=== PATIENT | male | born 1960 | race African-American/Black ===

== ENCOUNTER → 2021-09-24 11:42 | Outpatient (BNVA) | payer MEDICARE, MEDICAID, SELFPAY | PROVIDERS: Visit Provider Internal Medicine Gastroenterology | DX: K21.9 Gastro-esophageal reflux disease without esophagitis (principal); K59.00 Constipation, unspecified | CPT/HCPCS: 99212 ==

== ENCOUNTER 2021-12-12 10:42 | Day surgery (SDC) | payer MEDICARE, MEDICAID, SELFPAY ==
[2021-12-05 10:18] VITALS: BMI 27.9
--- NOTE | 2021-12-07 13:16 | HO.ANESPROP2 ---
Documented by User: Lakia Garcia NP 12/07/21 13:17 HPI - Anesthesia Eval Consult details Narrative: 61yo M for ?Upper Endoscopy [facility] Past Medical History Medical History (Updated 12/05/21 @ 10:13 by Rona Chen RN) Chronic back pain GERD (gastroesophageal reflux disease) AMERICO (obstructive sleep apnea) PTSD (post-traumatic stress disorder) Sciatica Surgical History Surgical History (Updated 12/05/21 @ 10:13 by Rona Chen RN) Hx of colonoscopy Social History Social History Patient Tobacco Use Status: Tobacco use Unknown Advance Directives: No Advance Directives Information Provided: Yes Advance Directives on File: No Meds Allergies Allergy/AdvReac Type Severity Reaction Status Date / Time No Known Allergies Allergy Verified 09/24/21 11:47 Home Medications Medication Instructions Recorded Confirmed Last Taken Type alprazolam 0.5 mg tablet (Xanax) 0.5 mg PO BEDTIME PRN 09/24/21 Unknown History atorvastatin 40 mg tablet 40 mg PO DAILY 09/24/21 Unknown History escitalopram oxalate 20 mg tablet 20 mg PO DAILY 09/24/21 Unknown History (Lexapro) hydrochlorothiazide 12.5 mg tablet 12.5 mg PO DAILY 09/24/21 Unknown History ibuprofen 400 mg tablet 400 mg PO Q8H PRN 09/24/21 Unknown History lisinopril 10 mg tablet 10 mg PO DAILY 09/24/21 Unknown History prazosin 5 mg capsule mg PO 09/24/21 Unknown History sumatriptan succinate 50 mg tablet See Rx Instructions PO .COMPLEX 09/24/21 Unknown History Exam Exam Date and Time: December 07, 2021 1316 Height,Weight and Vital Signs: Height 6 ft 1 in Weight 96.162 kg Assessment and Plan Assessment Anesthesia Assessment: Chart Reviewed Documented by User: Wolf Sood MD 12/12/21 11:02 [facility] Past Medical History Medical History (Updated 12/05/21 @ 10:13 by Rona Chen RN) Chronic back pain GERD (gastroesophageal reflux disease) AMERICO (obstructive sleep apnea) PTSD (post-traumatic stress disorder) Sciatica Family History Family history of problems with anesthesia: No Surgical History Surgical History (Updated 12/05/21 @ 10:13 by Rona Chen RN) Hx of colonoscopy History of Problems with Anesthesia: No Social History Social History Patient Tobacco Use Status: Tobacco use Unknown Advance Directives: No Advance Directives Information Provided: Yes Advance Directives on File: No Meds Allergies Allergy/AdvReac Type Severity Reaction Status Date / Time No Known Allergies Allergy Verified 09/24/21 11:47 Home Medications Medication Instructions Recorded Confirmed Last Taken Type alprazolam 0.5 mg tablet (Xanax) 0.5 mg PO BEDTIME PRN 09/24/21 Unknown History atorvastatin 40 mg tablet 40 mg PO DAILY 09/24/21 Unknown History escitalopram oxalate 20 mg tablet 20 mg PO DAILY 09/24/21 Unknown History (Lexapro) hydrochlorothiazide 12.5 mg tablet 12.5 mg PO DAILY 09/24/21 Unknown History ibuprofen 400 mg tablet 400 mg PO Q8H PRN 09/24/21 Unknown History lisinopril 10 mg tablet 10 mg PO DAILY 09/24/21 Unknown History prazosin 5 mg capsule mg PO 09/24/21 Unknown History sumatriptan succinate 50 mg tablet See Rx Instructions PO .COMPLEX 09/24/21 Unknown History Exam Airway Mallampati Class: III TM Dist: >3cm Neck ROM: Full Loose/Missing/Broken Teeth: No Heart: [id number] Lungs: cta b/l Assessment and Plan Assessment Anesthesia Assessment: Anesthesia Plan Discussed Final Anesthetic Review Family History of Problems with Anesthesia: No History of Problems with Anesthesia: No NPO: Yes ASA Class: III Final Preanesthetic Review: No Changes in Pt Med Stat, Meds/Allgs Chart Reviewed, Consent Obtained/Reviewed and Anes Risks/Benef Reviewed Patient Risk: Intermediate Procedure Risk: Intermediate Assessment/Block/Sedation in SS: Assess/Block/Sedation-SS Anesthetic Plan Anesthetic Plan: MAC: and Agree w/ Assess. and Plan Disposition: Standard PACU
[2021-12-12 10:45] VITALS: BP 157/68; PULSE 64; RESP 17; TEMP 35.9; O2SAT 95
[2021-12-12] MEDS: Lactated Ringers 1,000 ML 100 ML IVCONT (11:04)
--- NOTE | 2021-12-12 11:11 | P.HPSUR_ITS ---
Pre-Procedural Eval Section A Date of Service: 12/12/21 Section B Chief Complaint: reflux disease Relevant Family History (Specify if Yes): No Relevant Social History: None Present Medications: see Short Stay Collaborative assessment Medical History: Significant History (Chronic back pain GERD (gastroesophageal reflux disease) AMERICO (obstructive sleep apnea) PTSD (post-traumatic stress disorder) Sciatica) History of Previous Operations: Relevant previous surgery/procedure and date(s) (colonoscopy) Allergies: Allergies Allergy/AdvReac Type Severity Reaction Status Date / Time No Known Allergies Allergy Verified 09/24/21 11:47 Review of Systems Sugical H&P ROS: Negative: Constitution, Cardiovascular, Respiratory, Neurological, Psychiatric, Hem-Onc, Allergic/Immunologic, Gastrointestinal, Genitourinary, Musculoskeletal, Integumentary, Endocrine and Eye s/Ears/Nose/Throat Exam Surgical H&P Exam: Normal: HEENT, Normal: Heart, Normal: Lungs, Normal: Extremities, Normal: Abdomen, Normal: Skin and Normal: Neurological Plan Diagnosis/Plan: Unchanged I have reviewed the history and physical and performed a pertinent physical examination on my patient. No changes have occurred unless specified.
--- NOTE | 2021-12-12 11:24 | PM.OP ---
Brief Operative Note Date of Service: 12/12/21 Pre-op diagnosis: GERD, reflux related cough Post-op diagnosis: same Procedure: see op note Surgeon: Carol Ann Herrrea MD Anesthesia: MAC Was an Upper And Bottom Lacer Hand used for this Procedure?: No Estimated blood loss (mL): 0 Condition: stable Disposition: PACU
--- NOTE | 2021-12-12 11:25 | W.PM.OPN ---
Operative Note Operative Note Date of Service: 12/12/21 Narrative: Procedure Description: EGD Indication: [] Anesthesia: MAC FLEXIBLE TRANSORAL UPPER GASTROINTESTINAL ENDOSCOPY UPPER ENDOSCOPY Consent: Indications for the procedure and potential complications of bleeding, perforation, reaction to medications and missed diagnosis were discussed with the patient and informed consent was obtained. Instrument: Olympus GIF H 190 J mid size upper endoscope Monitoring: Vital signs and clinical assessment, continuous EKG monitoring, Pulse oximetry, Carbon Dioxide monitoring and blood pressure monitoring were done throughout the procedure. Procedure: The patient was placed in the left lateral decubitis position and pre-procedure medications were administered and a bite block was placed. The endoscope was inserted into the mouth and advanced under direct vision to the third part of duodenum. A careful inspection was made as the upper endoscope was withdrawn including a retroflexed examination of the proximal stomach; Findings and interventions are described below. Findings: Larynx:normal Esophagus: GE junction at 39 cm, diaphragm hiatus at 41 cm, consistent with 2 cm sliding hiatal hernia. Schatzki ring noted, there was some blood on the edges of the ring after scope was passed through it. small erosive streaks noted, consistent with LA grade A erosive esophagitis. Bx taken from GEJ, distal and proximal esophagus in separate jars. There also appeared to be tertiary contractions, probably from reflux disease. Stomach: Patchy gastric erythema. Biopsies were obtained. Grade 2 flap valve on retroflexed examination of the cardia. Duodenum: Mild bulbar duodenitis, normal descending duodenum, bx taken Intervention: Biopsies as noted above Impression/Findings: hiatal hernia schatzki ring gastritis duodenitis erosive esophagitis, LA grade A PLAN: consider changing PPI, check compliance and timing first if H pylori pos treat cut down on nsaid use, but also on SSRI which may be playing a role
[2021-12-12 11:33] VITALS: BP 131/77; PULSE 84; RESP 18; TEMP 36.9; O2SAT 95
[2021-12-12 11:38] VITALS: BP 122/72; PULSE 67; RESP 16; O2SAT 94
[2021-12-12 11:50] VITALS: BP 137/68; PULSE 62; RESP 16; O2SAT 99
[2021-12-12 12:10] VITALS: BP 137/77; PULSE 61; RESP 16; TEMP 36.8; O2SAT 99
== END 2021-12-12 13:24 | disposition home or self-care (01) ==
PROVIDERS: Visit Provider Internal Medicine Gastroenterology
PROC: 0DJ08ZZ Inspection of Upper Intestinal Tract, Via Natural or Artificial Opening Endoscopic (ICD-10-PCS; CPT 43235; principal; 2021-12-12 11:40)
DX: K21.9 Gastro-esophageal reflux disease without esophagitis (principal); K22.2 Esophageal obstruction; K29.80 Duodenitis without bleeding; K20.80 Other esophagitis without bleeding; K29.50 Unspecified chronic gastritis without bleeding; K44.9 Diaphragmatic hernia without obstruction or gangrene; G47.33 Obstructive sleep apnea (adult) (pediatric); Z79.899 Other long term (current) drug therapy; Z79.1 Long term (current) use of non-steroidal anti-inflammatories (NSAID)
CPT/HCPCS: 43239; 88305; 88342

== ENCOUNTER → 2021-12-21 11:46 | Outpatient (BNVA) | payer MEDICARE, MEDICAID, SELFPAY | PROVIDERS: Visit Provider Internal Medicine Gastroenterology | DX: K21.9 Gastro-esophageal reflux disease without esophagitis (principal); K22.2 Esophageal obstruction | CPT/HCPCS: 99212 ==

== ENCOUNTER → 2022-08-23 08:33 | Outpatient (BNVA) | payer MEDICARE, MEDICAID, SELFPAY | PROVIDERS: Visit Provider Internal Medicine Gastroenterology | DX: K21.9 Gastro-esophageal reflux disease without esophagitis (principal); K20.90 Esophagitis, unspecified without bleeding; K22.2 Esophageal obstruction; K29.80 Duodenitis without bleeding | CPT/HCPCS: 99212 ==

== ENCOUNTER → 2022-09-27 09:35 | Outpatient (BNVA) | payer MEDICARE, MEDICAID, SELFPAY | PROVIDERS: Visit Provider Internal Medicine Gastroenterology | DX: K21.00 Gastro-esophageal reflux disease with esophagitis, without bleeding (principal); K22.2 Esophageal obstruction; K29.80 Duodenitis without bleeding; Z79.899 Other long term (current) drug therapy | CPT/HCPCS: 99212 ==

== ENCOUNTER 2024-12-29 09:54 | Outpatient (AMB) | payer MEDICARE, MEDICAID, SELFPAY ==
[2024-12-29 09:58] VITALS: BMI 28.4
--- NOTE | 2024-12-29 09:58 | MHC.OFFVIS ---
Vital Signs 12/29/24 09:58 Height 6 ft 1 in Weight 215 lb BMI 28.4 Handedness Right Intake Visit Reasons: Right shoulder pain and weakness, Low back pain radiating to both legs Intake Note: Kobe is a 64 year old right hand dominant male who presents with complaints of progressively worsening right shoulder pain and weakness as well as chronic low back pain. The patient has been seen by a neurosurgeon in the past. He has had cervical spine fusion surgery several years ago. He reports minimal discomfort in his neck. He states that his low back pain has gotten worse over the last few years in spite of continued non operative treatments. The patient reports weakness when lifting his right hand above shoulder height. He did fall onto his right shoulder several years ago when he fell while caulking windows. He has failed the last 6 weeks of conservative treatment which has included Tylenol, anti-inflammatory medicines, muscle relaxants, a home exercise program and physical therapy exercises. At this point his right shoulder pain and weakness or interfering with his activities of daily living and his ability to sleep well through the night. Allergies No Known Allergies Allergy (Verified 12/29/24 10:04) Medication List - Last Reconciled 12/29/24 by Bigg Degroot MD alprazolam (Xanax) 0.5 mg PO BEDTIME PRN atorvastatin 40 mg PO DAILY ibuprofen 400 mg PO Q8H PRN melatonin mg PO BEDTIME PRN oxycodone 5 mg PO DAILY PRN pantoprazole 40 mg PO DAILY sumatriptan succinate take 1 tab at onset of headache; if no relief may repeat 1 tab after at least 2 hrs; max = 4 tabs/24 hr PO PFSH Medical History Chronic back pain GERD (gastroesophageal reflux disease) AMERICO (obstructive sleep apnea) PTSD (post-traumatic stress disorder) Sciatica Surgical History History of esophagogastroduodenoscopy (EGD) Hx of colonoscopy Social History (Updated 12/29/24 @ 10:02 by DANIELA Torre) Patient Tobacco Use Status: Never used Tobacco Current occupational status: unemployed Current occupation: rt handed Physical Exam Vital Signs: BMI result Body Mass Index 28.4 Const Other: Well-nourished well-developed very friendly male awake alert and oriented x3 in no acute distress Back/Spine/Pelvis Other: Low back examination shows bilateral paraspinal muscle tenderness, pain with range of motion, positive straight leg raise test bilaterally at 70 degrees, 4/5 strength with testing of his bilateral hip flexors and knee extensors Extrem Other: Right shoulder examination shows decreased range of motion when compared to his left shoulder, 4/5 strength with supraspinatus testing, positive impingement signs, tenderness over his acromioclavicular joint, no instability Results Reviewed Results Reviewed: X-rays of the patient's right shoulder which he brings with him from [facility] show severe acromioclavicular joint narrowing, a type 3 acromion, no acute bony abnormalities Assessment & Plan Assessment & Plan (1) Rotator cuff insufficiency of right shoulder: Code(s): M25.311 - Other instability, right shoulder Category: Medical (2) Low back pain radiating to both legs: Code(s): M54.50 - Low back pain, unspecified; M79.604 - Pain in right leg; M79.605 - Pain in left leg (3) Low back pain radiating down leg: Code(s): M54.50 - Low back pain, unspecified; M79.606 - Pain in leg, unspecified Category: Medical Plan Mr. Lee presents with progressively worsening right shoulder pain and weakness due to impingement syndrome and possible rotator cuff tearing. Thus, I will send the patient for an MRI of his right shoulder for further evaluation. I will see him back once the MRI is completed to discuss the findings and treatment options. He also has progressively worsening low back pain which radiates down his legs most likely due to lumbar stenosis versus a disc herniation. I will hold off on getting a back MRI until after his shoulder MRI. He will contact me prior to his MRI should his symptoms worsen in any way. I spent 21 minutes in reviewing the patient's records and imaging studies, seeing the patient and documenting in the medical record. Orders: Orders shoulder RT wo con Today M25.311 - Other instability, right shoulder Coding Level of Care Code New Pt Level 3 (48865) Complex EM visit Add On G2211 Diagnoses Rotator cuff insufficiency of right shoulder M25.311 Low back pain radiating to both legs M54.50; M79.604; M79.605 Low back pain radiating down leg M54.50; M79.606
--- OUTSIDE RECORDS SUMMARY | 2024-12-29 10:55 | XMS_ITS | Clinical Summary ---
Author Organization [facility] Address [address] [place] [address] Care Team Providers Care Collections Professional Name Role Phone Brant More MD Primary Care Provider Allergies No known active allergies Medications lisinopril (PRINIVIL,ZeSTR IL) 5 MG tablet Take 2 tablets (10 mg total) by mouth daily. Active oxyCODONE (ROXICODONE) 10 mg immediate release tablet Take 0.5 tablets (5 mg total) by mouth every 4 (four) hours as needed. Active atorvastatin (LIPITOR) 40 MG tablet Take 1 tablet (40 mg total) by mouth daily. Active docusate sodium (COLACE) 10 mg/mL liquid Take 10 mL (100 mg total) by mouth daily. Active naproxen (NAPROSYN) 500 MG tabletIndicatio ns:Rotator cuff tendinitis, right Take 1 tablet (500 mg total) by mouth 2 (two) times a day with meals. Take with meals or food to reduce stomach upset. 60 tablet 11/18/2024 Active Encounters Date Type Department Care Team Description 11/18/2024 2:30 PM EDT [facility] [address] [address] Markell Castillo, [place] Rotator cuff tendinitis, right (Primary Dx); Biceps tendinitis of right shoulder 11/14/2024 1:10 PM EDT - 11/14/2024 3:20 PM EDT Emergency [facility] Emergency Department [address] [place] [address] Right shoulder pain (Primary Dx) Discharge Disposition: Home or Self Care 11/14/2024 Travel 10/28/2024 Telephone [facility] PHYSICAL MEDICINE & [place] [place] [address] [facility] [address] [place] [address] Brant More MD 10/28/2024 Scanned Document [facility] [place] [address] [facility] [address] [place] [address] Kalani Mercado MA 10/21/2024 12:00 PM EST Office Visit [facility] PHYSICAL MEDICINE & [place] [place] [address] [facility] [address] [place] [address] Brant More MD Bilateral hip pain (Primary Dx); Bilateral hip joint arthritis; Greater trochanteric pain syndrome 10/21/2024 Scanned Document [facility] [place] [address] [facility] [address] [place] [address] Kalani Mercado MA 10/21/2024 Travel 10/18/2024 Telephone [facility] PHYSICAL MEDICINE & [place] [address] [facility] [address] [place] [address] Zoila Seo MA 10/08/2024 Telephone [facility] [address] [place] [address] Kim Weinstein 10/05/2024 Scanned Document [facility] MEDICINE [facility] [place] [address] [address] [place] [address] Rach Blunt MA 10/04/2024 Telephone [facility] PHYSICAL MEDICINE & [place] [place] [address] [facility] [address] [place] [address] Saul Ortiz RN from Last 3 Months Family History Medical History Relation Name Comments Hypertension Brother Hypertension Father Arthritis Mother Coronary artery disease Mother Hypertension Mother Cancer Sister Relation Name Status Comments Brother Alive Father Mother Sister Social History Tobacco Use Types Packs/Day Years Used Date Smoking Tobacco: Never Assessed Passive Smoke Exposure: Never Smokeless Tobacco: Never Tobacco Cessation:Counseling Given: Not Answered Alcohol Use Standard Drinks/Week Comments Not Currently 0 (1 standard drink = 0.6 oz pur e alcohol) [facility] [place] of Occupat ional Health - Occupational Stress Questionnaire Answer Date Recorded Do you feel stress - tense, restless, nervous, or anxious, or unable to sleep at night because your mind is troubled all the time - these days? Not at all 10/21/2024 Physical Activity Answer Date Recorded On average, how many days pe r week do you engage in moderate to strenuous exercise (like a brisk walk)? 0 days 10/21/2024 On average, how many minutes do you exercise per day at this level? 0 min 10/21/2024 Sex and Gender Information Value Date Recorded Sex Assigned at Male 09/03/2024 3:39 PM EST Legal Sex Male 12:05 PM EDT Gender Identity Male 09/03/2024 3:39 PM EST Sexual Orientation Choose not to disclose 2024 3:39 PM EST Last Filed Vital Signs Vital Sign Reading Time Taken Comments Blood Pressure 160/84 11/14/2024 1:03 PM EDT Pulse 77 11/14/2024 1:03 PM EDT Temperature 36.2 ??C (97.2 ??F) 11/14/2024 1:03 PM ED T Respiratory Rate 18 11/14/2024 1:53 PM EDT Oxygen Saturation 99% 11/14/2024 1:03 PM EDT Inhaled Oxygen Concentration - - Weight - - Height - - Body Mass Index - - Plan of Treatment Health Maintenance Due Date Last Done Comments Hepatitis C Virus Screening 1960 DTaP/Tdap/Td Vaccines (1 - Tdap) 1977 Colonoscopy 2003 Pneumococcal Vaccines 50+ (1 of 1 - PCV) 2008 Zoster (Shingles) Vaccine (1 of 2) 2008 COVID-19 Vaccine ( - 2023-2 5 season) 2024 Influenza Vaccine 03/25/2025 RSV Vaccine 60 years and old er and Patients (1 - 1-dose 75+ series) 2033 Hepatitis B Vaccines Aged Out No long er eligible based on patient's age to complete this topic Procedures Procedure Name Priority Date/Time Associated Diagnosis Comments XR SHOULDER 2+ VIEWS-RIGHT STAT 11/14/2024 2:28 PM EDT from Last 3 Months Results * XR Shoulder 2+ views-Right (11/14/2024 2:28 PM EDT) Anatomical Region Laterality Modality Shoulder Right Computed Radiogr aphy 11/14/2024 2:14 PM EDT Impressions 11/14/2024 2:48 PM EDT No acute osseous pathology of the right shoulder. Interpreted by: ??Neel Landrum MD Surety Bond Agent I personally reviewed the images and the resident's preliminary report and AGREE with the report as it is now presented ([email or web address]). Narrative 11/14/2024 2:48 PM EDT EXAMINATION: XR SHOULDER, RIGHT CLINICAL INFORMATION: Right shoulder pain s/p fall COMPARISON: None available. ?? TECHNIQUE: AP external rotation, Grashey, scapular Y, and axillary views of the right shoulder. FINDINGS: No fracture. Glenohumeral and acromioclavicular alignment is anatomic with normal joint space. Mild right acromioclavicular joint osteoarthritis. No abnormal soft tissue calcifications. ??Partially imaged cervical spine fusion hardware. Procedure Note Marty Johnson MD - 11/14/2024 EXAMINATION: XR SHOULDER, RIGHT CLINICAL INFORMATION: Right shoulder pain s/p fall COMPARISON: None available. TECHNIQUE: AP external rotation, Grashey, scapular Y, and axillary views of the right shoulder. FINDINGS: No fracture. Glenohumeral and acromioclavicular alignment is anatomic with normal joint space. Mild right acromioclavicular joint osteoarthritis. No abnormal soft tissue calcifications. Partially imaged cervical spine fusion hardware. IMPRESSION: No acute osseous pathology of the right shoulder. Interpreted by: Neel Landrum MD Surety Bond Agent I personally reviewed the images and the resident's preliminary report and AGREE with the report as it is now presented (RADPAL1). Smith Mayer PA-C [facility] Final Result from Last 3 Months Insurance MEDICARE PART A & B [facility] MEDICARE PART A & B [facility] Care Teams Collections Professional Relationship Specialty Start Date End Date Brant More MD [address] [place] [address] PCP - General Physical Medicine and Rehabilitation 09/03/24
--- OUTSIDE RECORDS SUMMARY | 2024-12-29 10:55 | XMS_ITS | Encounter Summary ---
Author Organization [facility] Address [address] [place] [id number] Care Team Providers Care Production Broaching Machine Operator Name Role Phone Brant More MD Primary Care Provider Encounter Details Date Type Department Care Team (Late st Contact Info) Description 09/22/2024 Telephone [facility] PHYSICAL MEDICINE & REHAB [place] [address] [place] [phone] Brant More MD [address] [place] [address] Social History Tobacco Use Types Packs/Day Years Used Date Smoking Tobacco: Never Assessed Passive Smoke Exposure: Never Smokeless Tobacco: Never Alcohol Use Standard Drinks/Week Comments Not Currently 0 (1 standard drink = 0.6 oz pur e alcohol) [facility] [place] of Occupat ional Health - Occupational Stress Questionnaire Answer Date Recorded Do you feel stress - tense, restless, nervous, or anxious, or unable to sleep at night because your mind is troubled all the time - these days? To some extent 09/22/2024 Physical Activity Answer Date Recorded On average, how many days pe r week do you engage in moderate to strenuous exercise (like a brisk walk)? 0 days 09/22/2024 On average, how many minutes do you exercise per day at this level? 0 min 09/22/2024 Sex and Gender Information Value Date Recorded Sex Assigned at Male 09/03/2024 3:39 PM EST Legal Sex Male 12:05 PM EDT Gender Identity Male 09/03/2024 3:39 PM EST Sexual Orientation Choose not to disclose 2024 3:39 PM EST documented as of this encounter Plan of Treatment Not on file documented as of this encounter Visit Diagnoses Not on filedocumented in this encounter Care Teams Production Broaching Machine Operator Relationship Specialty Start Date End Date Brant More MD [address] [place] [address] PCP - General Physical Medicine and Rehabilitation 09/03/24 documented as of this encounter
--- OUTSIDE RECORDS SUMMARY | 2024-12-29 10:55 | XMS_ITS ---
[facility] Name [facility] History of Medication Use Medication Directions Dispensed Refills Start Date End Date Stat us naproxen (NAPROSYN) 500 MG tablet Take 1 tablet (500 mg total) by mouth 2 (two) times a day with meals. Take with meals or food to reduce stomach upset. 11/18/2024 active atorvastatin (LIPITOR) 40 MG tablet Take 1 tablet (40 mg total) by mouth daily. active docusate sodium (COLACE) 10 mg/mL liquid Take 10 mL (100 mg total) by mouth daily. active lisinopril (PRINIVIL,ZeSTRIL) 5 MG tablet Take 2 tablets (10 mg total) by mouth daily. active oxyCODONE (ROXICODONE) 10 mg immediate release tablet Take 0.5 tablets (5 mg total) by mouth every 4 (four) hours as needed. Max Daily Amount: 30 mg active Problems Problem Status Onset Date Problem Type Date of Resoluti on Source Rotator cuff tendinitis, right active EncounterDiagnosisAct H [facility] Biceps tendinitis of right shoulder active EncounterDiagnosisAct H [facility] Encounters Encounter Type Encounter Reason Primary Diagnosis Location Date Ambulatory [email or web address] 11/18/2024 Emergency Pain in right shoulder Pain in right shoulder [email or web address] 11/14/2024 Ambulatory Pain in right hip Pain in right hip [facility] 10/21/2024 Ambulatory Low back pain, unspecified Low back pain, unspecified [facility] 09/22/2024 Care Team Organization Name Specialty Phone Email Start Date End Da te [facility] 11/15/2024 [facility] 11/03/2024 12/18/2024 [facility] 09/04/2024
--- OUTSIDE RECORDS SUMMARY | 2024-12-29 10:55 | XMS_ITS | Encounter Summary ---
Author Organization [facility] Address [address] [place] [phone] Care Team Providers Care Optical Instrument Inspector Name Role Phone Brant More MD Primary Care Provider Encounter Details Date Type Department Care Team (Late st Contact Info) Description 10/05/2024 Scanned Document [facility] PHYSICAL MEDICINE & RE[facility]AB [place] [facility] [address] [place] [address] Rach Blunt MA [address] [place], [place] [phone] Social History Tobacco Use Types Packs/Day Years Used Date Smoking Tobacco: Never Assessed Passive Smoke Exposure: Never Smokeless Tobacco: Never Alcohol Use Standard Drinks/Week Comments Not Currently 0 (1 standard drink = 0.6 oz pur e alcohol) [facility] [place] of Occupat ional Health - Occupational Stress [...] on filedocumented in this encounter Care Teams Optical Instrument Inspector Relationship Specialty Start Date End Date Brant More MD [address] [place] [address] PCP - General Physical Medicine and Rehabilitation 09/03/24 documented as of this encounter
--- OUTSIDE RECORDS SUMMARY | 2024-12-29 10:55 | XMS_ITS | Clinical Summary ---
Author Organization [facility] Address [address] [place] [address] Care Team Providers Care Ship Boat Or Barge Mate Name Role Phone Unavailable Primary Care Provider Unavailabl e Allergies No known active allergies Medications Medication Sig Dispensed Refills Start Date End Date Status naproxen (NAPROSYN) 500 MG tablet Take 500 mg by mouth 2 (two) times a day with meals. 0 Active lidocaine (XYLOCAINE) 5 % ointment APPLY 1 GRAM TOPICALLY TID PRN 0 03/25/2020 Active amitriptyline (ELAVIL) tablet 25 mg TK 1 T PO QHS 0 03/25/2020 Active Active Problems No known active problems Social History Tobacco Use Types Packs/Day Years Used Date Smoking Tobacco: Never Smokeless Tobacco: Never Alcohol Use Standard Drinks/Week Comments No 0 (1 standard drink = 0.6 oz pur e alcohol) Sex and Gender Information Value Date Recorded Sex Assigned at Not on file Gender Identity Not on file Sexual Orientation Not on file Job Start Date Occupation Industry Not on file Not on file Not on file Last Filed Vital Signs Vital Sign Reading Time Taken Comments Blood Pressure 130/78 10/04/2019 1:33 PM EST Pulse 91 04/12/2020 10:39 AM EDT Temperature - - Respiratory Rate - - Oxygen Saturation 98% 04/12/2020 10:39 AM EDT Inhaled Oxygen Concentration - - Weight 96.6 kg (213 lb) 04/12/2020 10:39 AM EDT Height 182.9 cm (6') 04/12/2020 10:39 AM EDT Body Mass Index 28.89 04/12/2020 10:39 AM EDT Plan of Treatment Health Maintenance Due Date Last Done Comments Hepatitis C Screening 1960 COVID-19 Vaccine (#1) 1958 Depression Screening 1970 Preventative Health Evaluation 1976 DTap / Tdap / Td (1 - Tdap) 1977 Colon Cancer Screening (Colonoscopy) 2003 Shingrix-Zoster Vaccine (1 o f 2) 2008 BMI Counseling 10/04/2020 10/04/2019, 09/03/2019 Fall Risk Assessment 2023 Pneumococcal Vaccine (1 of 1 - PCV) 2023 Influenza Vaccine (#1) 2024 RSV Adult > 60+ Yrs or (1 - 1-dose 75+ series) 2033 Hepatitis B Vaccines Aged Out No long er eligible based on patient's age to complete this topic RSV Ped < 20 months Aged Out No longe r eligible based on patient's age to complete this topic Kobe Lee Personal/Family Self 1960 [address] [place] [address] Kobe Lee Personal/Family Self 1960 [address] [place] [address]
--- OUTSIDE RECORDS SUMMARY | 2024-12-29 10:56 | XMS_ITS | Encounter Summary ---
Author Organization [facility] Address [address] [place] [address] Care Team Providers Care Director Underwriter Sales Name Role Phone Brant More MD Primary Care Provider Encounter Details Date Type Department Care Team (Late st Contact Info) Description 10/28/2024 Scanned Document [facility] PHYSICAL MEDICINE & REHAB [place] [address] [place] [phone] Kalani Mercado MA [address] [place] [address] Social History Tobacco Use Types Packs/Day Years Used Date Smoking Tobacco: Never Assessed Passive Smoke Exposure: Never Smokeless Tobacco: Never Alcohol Use Standard Drinks/Week Comments Not Currently 0 (1 standard drink = 0.6 oz pur e alcohol) [facility] [place] of Occupat ional Health - Occupational Stress [...] on filedocumented in this encounter Care Teams Director Underwriter Sales Relationship Specialty Start Date End Date Brant More MD [address] [place] [address] PCP - General Physical Medicine and Rehabilitation 09/03/24 documented as of this encounter
--- OUTSIDE RECORDS SUMMARY | 2024-12-29 10:56 | XMS_ITS | Clinical Summary ---
Author Organization [facility] Address [address] [place] [address] Care Team Providers Care Tennis Racket Repairer Name Role Phone Pcp, No MD Primary Care Provider Unavailabl e Allergies No known active allergies Medications diclofenac sodium (VOLTAREN) 1 % gel APPLY 2 GRAMS TOPICALLY FOUR TIMES A DAY FOR OSTEOARTHRITIS - USE DOSING CARD PROVIDED IN BOX 0 Active lidocaine (LIDODERM) 5 % patch APPLY 1 PATCH TOPICALLY ONCE DAILY (LEAVE PATCH ON FOR 12 HOURS, THEN REMOVE PATCH) 0 Active lisinopriL (PRINIVIL) 5 mg tablet lisinopril 5 mg tablet Active amitriptyline (ELAVIL) 25 mg tablet TK 1 T PO QHS 0 Active diazePAM (VALIUM) 5 mg tablet diazepam 5 mg tablet Active naproxen (NAPROSYN) 500 mg tablet Take 500 mg by mouth. 0 Active pravastatin (PRAVACHOL) 20 mg tablet pravastatin 20 mg tablet Active rizatriptan (MAXALT) 10 mg tablet rizatriptan 10 mg tablet Active Active Problems Problem Noted Date Diagnosed Date Essential hypertension 05/09/2020 Hypercholesterolemia 05/09/2020 Low back pain 05/09/2020 Migraine without aura 05/09/2020 Right knee pain 02/16/2020 Family History Relation Status Comments Father Mother Social History Tobacco Use Types Packs/Day Years Used Date Smoking Tobacco: Never Smokeless Tobacco: Never Alcohol Use Standard Drinks/Week Comments Never 0 (1 standard drink = 0.6 oz pur e alcohol) [facility] Answer Date Recorded Q1: How often do you have a drink containing alc ohol? Never 05/09/2020 Average Number of Drinks Not on file 020 Frequency of Binge Drinking Not on file 04/25 Sex and Gender Information Value Date Recorded Sex Assigned at Not on file Legal Sex Male 10:34 AM EST Gender Identity Not on file Sexual Orientation Not on file Last Filed Vital Signs Vital Sign Reading Time Taken Comments Blood Pressure - - Pulse - - Temperature - - Respiratory Rate - - Oxygen Saturation - - Inhaled Oxygen Concentration - - Weight 97.1 kg (214 lb) 05/09/2020 3:33 PM EDT Height 185.4 cm (6' 1 ) 05/09/2020 3:33 PM EDT Body Mass Index 28.23 05/09/2020 3:33 PM EDT Plan of Treatment Health Maintenance Due Date Last Done Comments CT Colonography 1960 Colonoscopy 1958 Colorectal Cancer Screening 1958 FIT-DNA (Cologuard) 1958 FIT 1960 FOBT 1960 Flex Sigmoidoscopy - 5y 1958 HIV Screening 1958 DTaP,Tdap,and Td Vaccines (1 - Tdap) 1976 Pneumococcal Vaccine, 50+ Ye ars (1 of 1 - PCV) 2008 Zoster Vaccines (1 of 2) 2008 COVID-19 Vaccine ( - 2023-2 5 season) 2024 Influenza Vaccine (Season Ended) 2025 HPV Vaccines Aged Out No longer eligi ble based on patient's age to complete this topic Hepatitis A Vaccines Aged Out No long er eligible based on patient's age to complete this topic MMR Vaccines Aged Out No longer eligi ble based on patient's age to complete this topic Meningococcal Vaccine Aged Out No veto effie eligible based on patient's age to complete this topic Insurance [address] [place] [id number] MEDICARE PART A & B Care Teams Tennis Racket Repairer Relationship Specialty Start Date End Date Belkis Schmitz MD [address] [place] [address] PCP - General Internal Medicine 05/02/20
--- OUTSIDE RECORDS SUMMARY | 2024-12-29 10:56 | XMS_ITS | Encounter Summary ---
Author Organization [facility] Address [address] [place] [id number] Care Team Providers Care Piece Work Inspector Name Role Phone Brant More MD Primary Care Provider Encounter Details Date Type Department Care Team (Late st Contact Info) Description 10/21/2024 Scanned Document [facility] PHYSICAL MEDICINE & REHAB [place] [address] [place] [phone] Kalani Mercado MA [address] [place] [address] Social History Tobacco Use Types Packs/Day Years Used Date Smoking Tobacco: Never Assessed Passive Smoke Exposure: Never Smokeless Tobacco: Never Alcohol Use Standard Drinks/Week Comments Not Currently 0 (1 standard drink = 0.6 oz pur e alcohol) [facility] [place] of Occupat ional Health - Occupational Stress [...] on filedocumented in this encounter Care Teams Piece Work Inspector Relationship Specialty Start Date End Date Brant More MD [address] [place] [address] PCP - General Physical Medicine and Rehabilitation 09/03/24 documented as of this encounter
== END 2024-12-29 10:21 | disposition home or self-care (01) ==
LOC: HO.HOS 09:55
PROVIDERS: Visit Provider Orthopaedic Surgery
DX: M25.311 Other instability, right shoulder (principal); M54.50 Low back pain, unspecified; M79.604 Pain in right leg; M79.605 Pain in left leg; M79.606 Pain in leg, unspecified
CPT/HCPCS: 99203; G2211

== ENCOUNTER 2024-12-29 15:14 | Outpatient (REF) | payer MEDICARE, MEDICAID, SELFPAY ==
--- OUTSIDE RECORDS SUMMARY | 2024-12-30 15:47 | XMS_ITS | Encounter Summary ---
Author Organization [facility] Address [address] [place] [phone] Care Team Providers Care Photovoltaic Panel Installer Name Role Phone Brant More MD Primary Care Provider Encounter Details Date Type Department Care Team (Late st Contact Info) Description 10/28/2024 Scanned Document [facility] PHYSICAL MEDICINE & REHAB [place] [address] [place] [phone] Kalani Mercado MA [address] [place] [address] Social History Tobacco Use Types Packs/Day Years Used Date Smoking Tobacco: Never Assessed Passive Smoke Exposure: Never Smokeless Tobacco: Never Alcohol Use Standard Drinks/Week Comments Not Currently 0 (1 standard drink = 0.6 oz pur e alcohol) [facility] [place] of Occupat ional Health - Occupational Stress [...] on filedocumented in this encounter Care Teams Photovoltaic Panel Installer Relationship Specialty Start Date End Date Brant More MD [address] [place] [address] PCP - General Physical Medicine and Rehabilitation 09/03/24 documented as of this encounter
--- OUTSIDE RECORDS SUMMARY | 2024-12-30 15:47 | XMS_ITS | Encounter Summary ---
Author Organization [facility] Address [address] [place] [phone] Care Team Providers Care Building Illuminating Engineer Name Role Phone Brant More MD Primary Care Provider Encounter Details Date Type Department Care Team (Late st Contact Info) Description 09/22/2024 Telephone [facility] PHYSICAL MEDICINE & REHAB [place] [address] [place] [phone] Brant More MD [address] [place] [address] Social History Tobacco Use Types Packs/Day Years Used Date Smoking Tobacco: Never Assessed Passive Smoke Exposure: Never Smokeless Tobacco: Never Alcohol Use Standard Drinks/Week Comments Not Currently 0 (1 standard drink = 0.6 oz pur e alcohol) [facility] [place] of Occupat ional Health - Occupational Stress [...] on filedocumented in this encounter Care Teams Building Illuminating Engineer Relationship Specialty Start Date End Date Brant More MD [address] [place] [address] PCP - General Physical Medicine and Rehabilitation 09/03/24 documented as of this encounter
--- OUTSIDE RECORDS SUMMARY | 2024-12-30 15:47 | XMS_ITS | Clinical Summary ---
Author Organization [facility] Address [address] [place] [address] Care Team Providers Care Spraying Machine Operator Name Role Phone Unavailable Primary Care Provider Unavailabl e Surgical History Surgery Date Site/Laterality Comments CERVICAL SPINE SURGERY PROCEDURE:CERVICAL SPINE SURGERY LUMBAR SPINE SURGERY PROCEDURE:LUMBAR SPINE SURGERY Medical History Medical History Date Comments Migraine DX:Migraine Hypertension DX:Hypertension Social History Tobacco Use Types Packs/Day Years Used Date Smoking Tobacco: Never Smokeless Tobacco: Never Alcohol Use Standard Drinks/Week Comments No 0 (1 standard drink = 0.6 oz pur e alcohol) Sex and Gender Information Value Date Recorded Sex Assigned at Not on file Legal Sex Male 8:21 PM EST Gender Identity Not on file Sexual Orientation Not on file Obstetrics History Plan of Treatment Health Maintenance Due Date Last Done Comments DTaP,Tdap,and Td Vaccines (1 - Tdap) 1977 Pneumococcal Vaccine: 50+ Ye ars (1 of 1 - PCV) 2008 Zoster Vaccines (1 of 2) 2008 Abdominal Aortic Aneurysm (A AA) Screen 07/27/2022 Cholesterol Screening (Lipid Panel) 07/27/2022 Colorectal Cancer Screening: Colonoscopy 07/27/2022 Depression Screening 07/27/2022 Hepatitis C Screening 07/27/2022 Social Influencers of Health Screening 07/27/2022 Falls Risk Assessment 2023 COVID-19 Vaccine ( - 2023-2 5 season) 2024 Influenza Vaccine (Season Ended) 2025 RSV Immunization Adult Patie nts (1 - 1-dose 75+ series) 2033 HIB Vaccines Aged Out No longer eligi ble based on patient's age to complete this topic HPV Vaccines Aged Out No longer eligi ble based on patient's age to complete this topic Hepatitis A Vaccines Aged Out No long er eligible based on patient's age to complete this topic Hepatitis B Vaccines Aged Out No long er eligible based on patient's age to complete this topic IPV Vaccines Aged Out No longer eligi ble based on patient's age to complete this topic MMR Vaccines Aged Out No longer eligi ble based on patient's age to complete this topic Meningococcal ACWY Vaccine Aged Out N o longer eligible based on patient's age to complete this topic Meningococcal B Vaccine Aged Out No l onger eligible based on patient's age to complete this topic RSV Immunization Patients Un afsaneh 20 months Aged Out No longer eligible b ased on patient's age to complete this topic Varicella Vaccines Aged Out No longer eligible based on patient's age to complete this topic
--- OUTSIDE RECORDS SUMMARY | 2024-12-30 15:47 | XMS_ITS | Clinical Summary ---
Author Organization [facility] Address [address] [place] [address] Care Team Providers Care Counter Maker Name Role Phone Brant More MD Primary [...] 11/18/2024 2:30 PM EDT [facility] [address] [address] Markell Castillo, PA Rotator cuff tendinitis, right (Primary Dx); Biceps tendinitis of right shoulder 11/14/2024 1:10 PM EDT - 11/14/2024 3:20 PM EDT Emergency [facility] Emergency Department [address] [place] [address] Right shoulder pain (Primary Dx) Discharge Disposition: Home or Self Care 11/14/2024 Travel 10/28/2024 Telephone [facility] [place] [address] [facility] [address] [place] [address] Brant More MD 10/28/2024 Scanned Document [facility] [place] [address] [facility] [address] [place] [address] Kalani Mercado MA 10/21/2024 12:00 PM EST Office Visit [facility] [place] [address] [facility] [address] [place] [address] Brant More MD Bilateral hip pain (Primary Dx); Bilateral hip joint arthritis; Greater trochanteric pain syndrome 10/21/2024 Scanned Document [facility] [place] [address] [facility] [address] [place] [address] Kalani Mercado MA 10/21/2024 Travel 10/18/2024 Telephone [facility] [place] [address] [facility] [address] [place] [address] Zoila Seo MA 10/08/2024 Telephone [facility] of Healthy Age [address] [place] [address] Kim Weinstein 10/05/2024 Scanned Document [facility] [place] [address] [place] [address] Rach Blunt MA 10/04/2024 Telephone [facility] [place] [address] [facility] [address] [place] [address] Saul Ortiz RN from Last 3 Months [...] drink = 0.6 oz pur e alcohol) [facility] [place] of Occupat ional Health - Occupational Stress [...] right shoulder. Interpreted by: ??Neel Landrum MD Travelift Operator I personally reviewed the images and the [...] right shoulder. Interpreted by: Neel Landrum MD Travelift Operator I personally reviewed the images and the resident's preliminary report and AGREE with the report as it is now presented ([id number]). Smith Mayer PA-C [facility] ORDER[facility] Final Result from Last 3 Months Insurance MEDICARE PART A & B [facility] MEDICARE PART A & B [facility] Care Teams Counter Maker Relationship Specialty Start Date End Date Brant More MD [address] [place] [address] PCP - General Physical Medicine and Rehabilitation 09/03/24
--- OUTSIDE RECORDS SUMMARY | 2024-12-30 15:47 | XMS_ITS | Continuity of Care Document ---
Author Organization [facility] Address [address] [place] [address] Phone Care Team Providers Care Cnc Service Engineer Name Role Phone Yasmin Garcia MD Unavailable [...] Visit EST-EPFHx,EPF Exam, Low MDM 15 Minutes [facility], [address] [place] [address], [facility], [place] tel:[phone] [facility] Adult Medicine f/u back pain (chief complaint) Body mass index (BMI) 29.0-29.9, adultChronic low back pain, unspecified back pain laterality, unspecified whether sciatica present Jose Hoffman. [address] [facility], [id number] [address] [place] [address], [facility], [place]. tel:[phone] OFFICE/OUTPT Visit, NEW-EPFHx,EPF Exam, SF MDM, 20 Minutes [facility], [address] [place] [address], [place] tel:[phone] [facility] Adult Medicine c/o back pain (chief complaint) Body mass index (BMI) 29.0-29.9, adultChronic low back pain, unspecified back pain laterality, unspecified whether sciatica presentOther chronic pain Jose Hoffman. [address], [id number] [facility], [place], [address], [place]. tel:[phone] Family History Family Member Type Diagnosis Age At Onset No Information Payers Payer name Insurance type Covered libertarian ID Authoriza tion(s) Medicare Part B [id number] Social History Type Description Quantity Date Captured [...] of notes c/[facility]. and note that i reviewed [...] Mental Status Date Cognitive Assessment Orientation - [place] ed to time, place, person, situation. Patient Care Teams Name Effective Dates (start - stop) Status Members No Information
--- OUTSIDE RECORDS SUMMARY | 2024-12-30 15:47 | XMS_ITS | Encounter Summary ---
Author Organization [facility] Address [address] [id number] Care Team Providers Care Game Author Name Role Phone Brant More MD Primary Care Provider Encounter Details Date Type Department Care Team (Late st Contact Info) Description 10/21/2024 Scanned Document [facility] & [facility] [place] [address] [place] [address] Kalani Mercado MA [address] [place] [address] Social History Tobacco Use Types Packs/Day Years Used Date Smoking Tobacco: Never Assessed Passive Smoke Exposure: Never Smokeless Tobacco: Never Alcohol Use Standard Drinks/Week Comments Not Currently 0 (1 standard drink = 0.6 oz pur e alcohol) [facility] [place] of Occupat ional Health - Occupational Stress [...] on filedocumented in this encounter Care Teams Game Author Relationship Specialty Start Date End Date Brant More MD [address] [place] [address] PCP - General Physical Medicine and Rehabilitation 09/03/24 documented as of this encounter
--- OUTSIDE RECORDS SUMMARY | 2024-12-30 15:47 | XMS_ITS | Encounter Summary ---
Author Organization [facility] Address [address] [id number] Care Team Providers Care Terry Cloth Cutter Hand Name Role Phone Brant More MD Primary Care Provider Encounter Details Date Type Department Care Team (Late st Contact Info) Description 10/05/2024 Scanned Document [facility] PHYSICAL MEDICINE & [facility] [place] [address] [place] [address] Rach Blunt MA [address] [place], [place] [id number] Social History Tobacco Use Types Packs/Day Years Used Date Smoking Tobacco: Never Assessed Passive Smoke Exposure: Never Smokeless Tobacco: Never Alcohol Use Standard Drinks/Week Comments Not Currently 0 (1 standard drink = 0.6 oz pur e alcohol) [facility] [place] of Occupat ional Health - Occupational Stress [...] on filedocumented in this encounter Care Teams Terry Cloth Cutter Hand Relationship Specialty Start Date End Date Brant More MD [address] [place] [address] PCP - General Physical Medicine and Rehabilitation 09/03/24 documented as of this encounter
--- OUTSIDE RECORDS SUMMARY | 2024-12-30 15:47 | XMS_ITS | Clinical Summary ---
Author Organization [facility] Address [address] [place] [address] Care Team Providers Care Music Therapy Specialist Name Role Phone Pcp, No MD Primary [...] age to complete this topic Insurance [address] [place] [id number] MEDICARE PART A & B Care Teams Music Therapy Specialist Relationship Specialty Start Date End Date Belkis Schmitz MD [address] [place] [address] PCP - General Internal Medicine 05/02/20
--- OUTSIDE RECORDS SUMMARY | 2024-12-30 15:47 | XMS_ITS | Clinical Summary ---
Author Organization [facility] Address [address] [place] [address] Care Team Providers Care Tile Mechanic Name Role Phone Unavailable Primary Care Provider [...] Personal/Family Self 1960 [address] [place] [address] Kobe Lee Personal/Family Self 1960 [address] [place] [address]
== END 2024-12-29 15:15 | disposition home or self-care (01) ==
LOC: HO.HOSX 15:14
PROVIDERS: Visit Provider Orthopaedic Surgery
DX: M25.311 Other instability, right shoulder (principal); G89.29 Other chronic pain; M54.50 Low back pain, unspecified; M79.605 Pain in left leg; M79.604 Pain in right leg
CPT/HCPCS: 99202

== ENCOUNTER 2025-03-01 13:12 | Outpatient (REF) | payer MEDICARE, MEDICAID, SELFPAY ==
--- OUTSIDE RECORDS SUMMARY | 2020-03-07 11:00 | XMS_ITS | Continuity of Care Document ---
Author Organization [facility] vices Address [address] [place] [address] Phone Care Team Providers Care Geospatial Information Scientist Name Role Phone Yasmin Garcia MD Unavailable Unavailable Allergies, Adverse Reactions, Alerts Substance Reaction Status Criticality No Known Allergies Active No Inform ation Procedures Procedure Date OFFICE/OUTPT Visit EST-EPFHx,EPFExam, Lo w MDM 15 Minutes Medicare [facility] Established Patien t OFFICE/OUTPT Visit, NEW-EPFHx,EPFExam, S F MDM, 20 Minutes Medicare [facility] New Patient Advance Directives Directive Yes / No Effective Date File Name No Information Encounters Encounter Description Practice Location Reason(s) For Visit Diagnoses Date Provider Providers Copied on Encounter OFFICE/OUTPT Visit EST-EPFHx,EPF Exam, Low MDM 15 Minutes [facility], [address] [place] [address], [facility], [place] tel:[phone] [facility] Adult Medicine f/u back pain (chief complaint) Body mass index (BMI) 29.0-29.9, adultChronic low back pain, unspecified back pain laterality, unspecified whether sciatica present Jose Hoffman. [address] [facility], [id number] [address] [place] [address], [facility], [place]. tel:[phone] OFFICE/OUTPT Visit, NEW-EPFHx,EPF Exam, SF MDM, 20 Minutes [facility], [address] [place] [address], [place] tel:[phone] [facility] Adult Medicine c/o back pain (chief complaint) Body mass index (BMI) 29.0-29.9, adultChronic low back pain, unspecified back pain laterality, unspecified whether sciatica presentOther chronic pain Jose Hoffman. [address], [id number] [facility], [place], [address], [place]. tel:[phone] Family History Family Member Type Diagnosis Age At Onset No Information Payers Payer name Insurance type Covered libertarian ID Authoriza tion(s) Medicare Part B [id number] Social History Type Description Quantity Date Captured Comments Alcohol Use Details Unknown Caffeine Use Details Unknown Tobacco Use Status Current non-smoker Smoking Status Never smoker Non-Smoking Tobacco Use Details : No Details Available : No Details Available Sex Male Sexual Orientation Choose not to disclose Gender Identity Female Vital Signs Date / Time: Height Weight BMI Pulse Rate Blood Pressure Temperature Respiratory Rate Body Surface Area Head Circumference Head Circ. Percentile Wt./Collin. Percentile BMI percentile Pulse Ox Inhaled Ox 3:24 PM 71.25 in 96.706 kg (213.20 lbs) 29.5 3 kg/m eter (2) 68 /min 156/83 mm[Hg] 97.90 F 18 /min 2.20 meter(2) 99 % 21 % 3:26 PM 156/82 mm[Hg] Chief Complaint And Reason For Visit From encounter dated '03/07/2020 15:00'. f/u back pain (chief complaint). Description: @ Back pain03/02/20 - injured in in 1975. and note that i reviewed said muscular strain without any supporting evidence. Saw multiple specialistlater on. Had discogram with a neurosurgeon showing angular tears at multiple levels. Dx with discogenic syndrome.Looking to get a letter stating that his back injury from is related to his current disability.03/07/20 - 04/03. pain stable. i revised letter today after further review of notes Reason For Referral Reason For Referral No Information Plan Of Treatment Date Type Action Status Goal Dietary management education , guidance, and counseling completed Goal Dietary management education , guidance, and counseling completed History Of Present Illness Encounter Date Complaint History Of Prese nt Illness f/u back pain @ Back pain03/02 - injured in in 1975. and note that i reviewed said muscular strain without any supporting evidence. Saw multiple specialist later on. Had discogram with a neurosurgeon showing angular tears at multiple levels. Dx with discogenic syndrome.Looking to get a letter stating that his back injury from is related to his current disability.03/07/20 - 04/03. pain stable. i revised letter today after further review of notes c/o back pain injured in [facility] in 1975. and note that i reviewed said muscular strain without any supporting evidence. Saw multiple specialist later on. Had discogram with a neurosurgeon shwoing angular tears at multiple levels. Dx with discogenic syndrome.Looking to get a letter stating that his back injury from is related to his current disability. Functional Status Date Functional Assessmen t Pain Score 04/03 Instructions Date Instruction Additional Infor timmy Dietary management e ducation, guidance, and counseling Related to Body mass index (BMI) 29.0-29.9, adult Weight monitoring Related to Bod y mass index (BMI) 29.0-29.9, adult Weight monitoring Related to Bod y mass index (BMI) 29.0-29.9, adult Dietary management e ducation, guidance, and counseling Related to Body mass index (BMI) 29.0-29.9, adult Assessments Type Assessment Date assessment Body mass index (BMI) 29.0-29.9, adult assessment Chronic low back qasim n, unspecified back pain laterality, unspecified whether sciatica present impression Stable-plan above Mental Status Date Cognitive Assessment Orientation - [place] ed to time, place, person, situation. Patient Care Teams Name Effective Dates (start - stop) Status Members No Information
--- NOTE | ~2025-03-01 | XR_ITS ---
EXAMINATION: XR BILATERAL HIPS WITH AP PELVIS CLINICAL INFORMATION: M25.559 - Pain in unspecified hip COMPARISON: None available. TECHNIQUE: AP and frog-leg lateral views of each hip and an AP view of the pelvis. FINDINGS: Right hip: There is a small convexity involving the anterior femoral head neck junction. There is adjacent degenerative cyst like change cephalad to this area. The joint is otherwise unremarkable. Left hip: There is mild axial joint space narrowing and subtle marginal osteophytes involving the femoral head. Pelvis: SI joints are symmetrical without degenerative changes, fusion, or erosions. Minimal degenerative change is noted in the pubic symphysis joint with punctate and amorphous calcifications. XR/XR hip BI w PEL1V IMPRESSION: Right hip demonstrates anterior bony convexity and adjacent degenerative cystic-like change raising question of underlying femoral acetabular impingement. 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 Pubic symphysis joint demonstrates mild degenerative changes and chondrocalcinosis. Electronically signed by: oYusuf Little MD 03/01/2025 01:50 PM EDT
--- OUTSIDE RECORDS SUMMARY | 2025-03-01 13:51 | XMS_ITS | Clinical Summary ---
Author Organization [facility] Address [address] [place] [address] Care Team Providers Care Medical Sales Associate Name Role Phone Brant More MD Primary [...] reduce stomach upset. 60 tablet 11/18/2024 Active Family History Medical History Relation Name Comments [...] drink = 0.6 oz pur e alcohol) [facility] of Occupat ional Health - Occupational Stress [...] 75 11/14/2024 1:03 PM EDT Temperature 36.2 C (97.2 F) 11/14/2024 1:03 PM EDT Respiratory Rate 18 11/14/2024 1:53 PM EDT [...] patient's age to complete this topic Insurance MEDICARE PART A & B [facility] MEDICARE PART A & B [facility] Care Teams Medical Sales Associate Relationship Specialty Start Date End Date Brant More MD [address] [place] [address] PCP - General Physical Medicine and Rehabilitation 09/03/24
--- OUTSIDE RECORDS SUMMARY | 2025-03-01 13:51 | XMS_ITS | Clinical Summary ---
Author Organization [facility] Address [address] [place] [address] Care Team Providers Care Quarryman Name Role Phone Unavailable Primary Care Provider [...] 1 - PCV) 2023 Influenza Vaccine (#1) 2025 RSV Adult > 60+ Yrs or (1 - 1-dose 75+ series) 2033 Hepatitis B Vaccines Aged Out No long er eligible based on patient's age to complete this topic RSV Ped < 20 months Aged Out No longe r eligible based on patient's age to complete this topic Kobe Lee Personal/Family Self 1960 [address] [place] [address] Kobe Lee Personal/Family Self 1960 [address] [place] [address]
--- OUTSIDE RECORDS SUMMARY | 2025-03-01 13:51 | XMS_ITS | Clinical Summary ---
Author Organization [facility] Address [address] [place] [address] Care Team Providers Care Chief Procurement Officer Name Role Phone Pcp, No MD Primary [...] Vaccines (1 of 2) 2008 COVID-19 Vaccine (1 - 2023-2 5 season) 2024 Influenza Vaccine (#1) 2025 HPV Vaccines Aged Out No longer [...] topic Insurance MEDICARE PART A & B Care Teams Chief Procurement Officer Relationship Specialty Start Date End Date Belkis Schmitz MD [address] [place] [address] PCP - General Internal Medicine 05/02/20
--- OUTSIDE RECORDS SUMMARY | 2025-03-01 13:51 | XMS_ITS ---
Author Name [facility] Organization Unknown History of Medication Use Medication Directions Dispensed Refills Start Date End Date Stat naproxen (NAPROSYN) 500 MG tablet Take 1 [...] Encounter Reason Primary Diagnosis Location Date Ambulatory [facility] 02/11/2025 Ambulatory [facility] 02/11/2025 Ambulatory [facility] 02/11/2025 Ambulatory [facility] 02/11/2025 Ambulatory [facility] 11/18/2024 Emergency Pain in right shoulder Pain in right shoulder [facility] 11/14/2024 Ambulatory Pain in right hip Pain in right hip [facility] 10/21/2024 Ambulatory Low back pain, unspecified Low back pain, unspecified [facility] 09/22/2024 Care Team Organization Name Specialty Phone Email Start Date End [facility]
--- OUTSIDE RECORDS SUMMARY | 2025-03-01 13:51 | XMS_ITS | Clinical Summary ---
Author Organization [facility] Address [address] [place] [address] Care Team Providers Care Glass Presser Name Role Phone Unavailable Primary Care Provider [...] 5 season) 2024 Influenza Vaccine (#1) 2025 RSV Immunization Adult Patie nts (1 [...]
== END 2025-03-01 13:13 | disposition home or self-care (01) ==
LOC: HO.HOSX 13:12
PROVIDERS: Visit Provider Physician Assistant
DX: M47.817 Spondylosis without myelopathy or radiculopathy, lumbosacral region (principal); M70.71 Other bursitis of hip, right hip; M70.72 Other bursitis of hip, left hip; M54.41 Lumbago with sciatica, right side
CPT/HCPCS: 73521; 99212

== ENCOUNTER 2025-03-01 13:22 | Outpatient (AMB) | payer MEDICARE, MEDICAID, SELFPAY ==
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
[2025-03-01 13:38] VITALS: BMI 28.4
--- NOTE | 2025-03-01 13:38 | A.OFFVIS_ITS ---
Vital Signs 03/01/25 13:38 Height 6 ft 1 in Weight 215 lb BMI 28.4 Intake Visit Reasons: New prob bilat hip pain, worse on RT Intake Note: Kobe is a 64 year old male who presents today as a new patient for an evaluation of bilateral hip pain. Patient reports his pain has been present for a while and initially thought it was his back. He mentions being diagnosed with bilateral radiculopathy sciatica nerve and DDD. Patient reports a previous injury while he was in . He has constant pain that is located at the lateral aspect of hip that radiates down the leg and his lower back area. States his pain is aggravated with sitting down and getting up, at night with laying in bed and stair use. He has tried physical therapy, acupuncture, TENS unit and icing. He states icing provides him with the most relief. He also complains of knee pain and his knees giving out. Allergies No Known Allergies Allergy (Verified 03/01/25 13:39) Medication List - Last Reconciled 03/01/25 by Yuliana Frye PA-C alprazolam (Xanax) 0.5 mg PO BEDTIME PRN atorvastatin 40 mg PO DAILY ibuprofen 400 mg PO Q8H PRN melatonin mg PO BEDTIME PRN oxycodone 5 mg PO DAILY PRN pantoprazole 40 mg PO DAILY sumatriptan succinate take 1 tab at onset of headache; if no relief may repeat 1 tab after at least 2 hrs; max = 4 tabs/24 hr PO HPI HPI New prob bilat hip pain, worse on RT: Details: 64-year-old gentleman presents to the office today for a combination of low back pain and bilateral hip pain. He does not recall a specific injury however he does have low back pain when he is walking and feels he needs to take frequent breaks or rest on a shopping cart to relieve his pain. He also complains of lateral-sided hip pain which is worse when lying down or laying on the affected side. He states he has done physical therapy, acupuncture uneven used a 10s unit without significant relief. [facility] Medical History Chronic back pain GERD (gastroesophageal reflux disease) AMER[place] (obstructive sleep apnea) PTSD (post-traumatic stress disorder) Sciatica Surgical History History of esophagogastroduodenoscopy (EGD) Hx of colonoscopy Social History Patient Tobacco Use Status: Never used Tobacco Current occupational status: unemployed Current occupation: rt handed Review of Systems Const All systems reviewed & are unremarkable except as noted in HPI and below Physical Exam Vital Signs: BMI result Body Mass Index 28.4 Const General: cooperative and no acute distress Orientation/consciousness: patient oriented x3 Resp Effort & Inspection: normal respiratory effort and able to speak in complete sentences Cardio Peripheral pulses: Peripheral pulses 2+ throughout Neuro General: patient oriented x3 Extrem Other: bilat hip normal to inspection. No pain with ROM of the hip. Pain along the greater trochanter. No pain with hip flexion or abduction.There is tenderness along the si joint, Negative SLR. NVI. Results Reviewed Results Reviewed: X-rays of both hips obtained in the office today and reviewed by me show mild arthritis Assessment & Plan Assessment & Plan (1) Low back pain radiating down leg: Code(s): M54.50 - Low back pain, unspecified; M79.606 - Pain in leg, unspecified Category: Medical (2) Bilateral hip bursitis: Code(s): M70.71 - Other bursitis of hip, right hip; M70.72 - Other bursitis of hip, left hip Category: Medical Plan We discussed options today which includes referral to physiatry which she is not interested in at this time. I did also recommend a course of physical therapy to work on posterior chain conditioning and strengthening exercises the patient states he has done physical therapy and declines at this time. He is interested in a stabilizing/unloading brace for his low back and hip region. I did place an order for this but explained he can not rely on this solely for his improvement he needs to do some exercises which we discussed. He is content with that plan but we will contact me if he would like a formal referral. Orders: Orders XR hip BI w PEL1V Today M25.559 - Pain in unspecified hip Medications: New [L1690: prefabricated bilateral lumbo-sacral hip orthosis] As directed 1 ea 0RF M47.817 - Spondylosis without myelopathy or radiculopathy, lumbosacral region, M54.50 - Low back pain, unspecified, M70.71 - Other bursitis of hip, right hip, M70.72 - Other bursitis of hip, left hip, M79.606 - Pain in leg, unspecified Coding Level of Care Code New Pt Level 3 (07538) Complex EM visit Add On G2211 Diagnoses Low back pain radiating down leg M54.50; M79.606 Bilateral hip bursitis M70.71; M70.72
== END 2025-03-01 14:47 | disposition home or self-care (01) ==
LOC: HO.HOS 13:23
PROVIDERS: Visit Provider Physician Assistant
DX: M54.50 Low back pain, unspecified (principal); M79.606 Pain in leg, unspecified; M70.71 Other bursitis of hip, right hip; M70.72 Other bursitis of hip, left hip
CPT/HCPCS: 99213; G2211

== ENCOUNTER → 2025-03-01 13:25 | Outpatient (BNV) | payer MEDICARE, MEDICAID, SELFPAY | PROVIDERS: Visit Provider Radiology Diagnostic Radiology | DX: M25.551 Pain in right hip (principal); M25.552 Pain in left hip | CPT/HCPCS: 73521 ==